=== PATIENT | female | born 1930 | race Hispanic/Latino ===

== ENCOUNTER 2019-02-22 18:59 | Emergency (ER) | payer OTHER ==
[~2019-02-22] VITALS: Ht 152.4 cm; Wt 49.4 kg
--- OUTSIDE RECORDS SUMMARY | 2019-02-22 19:02 | XMS REPORT ---
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
--- OUTSIDE RECORDS SUMMARY | 2019-02-22 19:02 | XMS REPORT ---
Author Author Samuel Cnaela [facility] eClinicalWorks Address Unknown Phone Unavailable Care Team Providers Care Hoop Cutter Name Role Phone Samuel Canela CP Unavailable Allergies, Adverse Reactions, Alerts Substance Reaction Event Type Sulfa Feels funny Non Drug Allergy Problems Problem Type Condition Code Onset Dates Condition Status Assessment Rheumatoid arthritis, involving unspecified site, unspecified rheumatoid factor presence M06.9 Active Problem Age-related osteoporosis without current pathological fracture M81.0 Active Assessment Age-related osteoporosis without current pathological fracture M81.0 Active Assessment Hip pain, left M25.552 Active Problem Inflammatory arthritis M19.90 Active Problem Vitamin D deficiency E55.9 Active Problem Shoulder pain, right M25.511 Active Problem Rheumatoid arthritis, involving unspecified site, unspecified rheumatoid factor presence M06.9 Active Problem [place] node M15.1 Active Problem Long-term use of high-risk medication Z79.899 Active Problem Polymyalgia rheumatica M35.3 Active Medications Medication Code System Code Instructions Start Date End Date Status Dosage Vitamin D (Ergocalciferol) [facility] 74799437520 84695 UNIT Orally once a week Active 1 capsule Pravastatin ND 0 20MG once a day Active 1 tablet Prolia [facility] 00787277631 60 MG/ML Subcutaneous January 21, 2018 Active as directed Levothyroxine Sodium ND 86637534817 25 MCG Orally Once a day Active 1 tablet Atenolol ND 07428015039 25 MG Orally Once a day Active 1 tablet Lisinopril ND 27319835677 40MG once a day Active 1 tablet Tramadol HCl ND 85680896502 50 MG Orally Three times a day Active 1 tablet PredniSONE ND 40838380574 2.5 MG Orally Once a day Jul 20, 2018 Active 1-2 tablet Boniva [facility] 94241838836 3 MG/3ML Intravenous 3 months January 21, 2018 Inactive 3 ml Vital Signs Date/Time: January 21, 2018 BMI 17.28 Index Weight 82.7 lbs Height 58 in Temperature 97.6 F Cardiac Monitoring Heart Rate 78 /min Blood Pressure Diastolic 70 mm Hg Blood Pressure Systolic 128 mm Hg Results No Known Results Summary Purpose eClinicalWorks Submission
--- OUTSIDE RECORDS SUMMARY | 2019-02-22 19:02 | XMS REPORT ---
Author Author Joel Miranda Organization eClinicalWorks Address Unknown Phone Unavailable Care Team Providers Care Textile Engineer Name Role Phone Joel Miranda CP Unavailable [...] Medications Results No Known Results Summary Purpose [employer] Submission
--- OUTSIDE RECORDS SUMMARY | 2019-02-22 19:02 | XMS REPORT ---
Author Author Joel Miranda Organization eClinicalWorks Address Unknown Phone Unavailable Care Team Providers Care Ict Account Manager Name Role Phone Joel Miranda CP Unavailable [...]
--- OUTSIDE RECORDS SUMMARY | 2019-02-22 19:02 | XMS REPORT ---
Author Author Joel Miranda Organization eClinicalWorks Address Unknown Phone Unavailable Care Team Providers Care Electrician Radio Name Role Phone Joel Miranda CP Unavailable [...] Medications Results No Known Results Summary Purpose [employer] Submission
--- OUTSIDE RECORDS SUMMARY | 2019-02-22 19:02 | XMS REPORT ---
Author Author Samuel Canela Organization eClinicalWorks Address Unknown Phone Unavailable Care Team Providers Care Home School Teacher Name Role Phone Samuel Canela CP Unavailable Allergies, Adverse Reactions, Alerts Substance Reaction Event Type Sulfa Feels funny Non Drug Allergy Problems Problem Type Condition Code Onset Dates Condition Status Assessment Age-related osteoporosis without current pathological fracture M81.0 Active Problem Age-related osteoporosis without current pathological fracture M81.0 Active Assessment Polymyalgia rheumatica M35.3 Active Problem Inflammatory arthritis M19.90 Active Problem Vitamin D deficiency E55.9 Active Problem Shoulder pain, right M25.511 Active Problem Rheumatoid arthritis, involving unspecified site, unspecified rheumatoid factor presence M06.9 Active Problem [place] node M15.1 Active Problem Long-term use of high-risk medication Z79.899 Active Problem Polymyalgia rheumatica M35.3 Active Medications Medication Code System Code Instructions Start Date End Date Status Dosage PredniSONE ND 21999815912 5 MG Orally Once a day Active 1-2 tablet Tramadol HCl ND 03554600964 50 MG Orally Three times a day Active 1 tablet Levothyroxine Sodium ND 60796591518 25 MCG Orally Once a day Active 1 tablet Losartan Potassium ND 07443884818 50 MG Orally twice a day Active 1 tablet Bisoprolol Fumarate ND 18940105456 5 MG Orally Once a day Active 1 tablet Prolia ND 47190664184 60 MG/ML Subcutaneous Jul 26, 2018 Active as directed Pravastatin NDC 0 20MG once a day Active 1 tablet Vital Signs Date/Time: December 06, 2018 BMI 17.25 Index Weight 85.4 lbs Height 59 in Temperature 97.9 F Cardiac Monitoring Heart Rate 60 /min Blood Pressure Diastolic 60 mm Hg Blood Pressure Systolic 130 mm Hg Results No Known Results Summary Purpose eClinicalWorks Submission
--- OUTSIDE RECORDS SUMMARY | 2019-02-22 19:02 | XMS REPORT ---
Author Author Joel Miranda Organization eClinicalWorks Address Unknown Phone Unavailable Care Team Providers Care Technical Support Associate Name Role Phone Joel Miranda CP Unavailable [...]
--- OUTSIDE RECORDS SUMMARY | 2019-02-22 19:02 | XMS REPORT ---
Author Author Samuel Canela [facility] eClinicalWorks Address Unknown Phone Unavailable Care Team Providers Care Sign Letterer Name Role Phone Samuel Canela CP Unavailable Allergies, Adverse Reactions, Alerts Substance Reaction Event Type Sulfa Feels funny Non Drug Allergy Problems Problem Type Condition Code Onset Dates Condition Status Assessment Long-term use of high-risk medication Z79.899 Active Problem Age-related osteoporosis without current pathological fracture M81.0 Active Assessment Age-related osteoporosis without current pathological fracture M81.0 Active Assessment Inflammatory arthritis M19.90 Active Assessment Vitamin D deficiency E55.9 Active Problem Inflammatory arthritis M19.90 Active Problem Vitamin D deficiency E55.9 Active Problem Shoulder pain, right M25.511 Active Problem Rheumatoid arthritis, involving unspecified site, unspecified rheumatoid factor presence M06.9 Active Problem [place] node M15.1 Active Problem Long-term use of high-risk medication Z79.899 Active Problem Polymyalgia rheumatica M35.3 Active Medications Medication Code System Code Instructions Start Date End Date Status Dosage Vitamin D (Ergocalciferol) [facility] 03532161897 69326 UNIT Orally once a week Active 1 capsule Pravastatin NDC 0 20MG once a day Active 1 tablet Tramadol HCl ND 70236856454 50 MG Orally Three times a day Active [address] [facility] 93377723932 3 MG/3ML Intravenous 3 months Active 3 ml PredniSONE ND 43720965240 2.5 MG Orally Once a day Active 1-2 tablet Atenolol ND 55510741578 25 MG Orally Once a day Active 1 tablet Lisinopril ND 11741092210 40MG once a day Active 1 tablet Levothyroxine Sodium ND 11227324573 25 MCG Orally Once a day Active 1 tablet Vital Signs Date/Time: Oct 12, 2017 BMI 17.45 Index Weight 83.5 lbs Height 58 in Temperature 97.4 F Cardiac Monitoring Heart Rate 82 /min Blood Pressure Diastolic 70 mm Hg Blood Pressure Systolic 122 mm Hg Results No Known Results Summary Purpose eClinicalWorks Submission
--- OUTSIDE RECORDS SUMMARY | 2019-02-22 19:02 | XMS REPORT ---
Author Author Samuel Canela [facility] eClinicalWorks Address Unknown Phone Unavailable Care Team Providers Care Greeter Name Role Phone Samuel Canela CP Unavailable Allergies No Known Allergies Problems [...] End Date Status Dosage Vitamin D (Ergocalciferol) [facility] 54524636036 15665 UNIT Orally once a week Active 1 capsule Results No Known Results Summary Purpose eClinicalWorks Submission
--- OUTSIDE RECORDS SUMMARY | 2019-02-22 19:02 | XMS REPORT ---
Author Author Samuel Canela [facility] eClinicalWorks Address Unknown Phone Unavailable Care Team Providers Care Grade Setter Name Role Phone Samuel Canela CP Unavailable Allergies, Adverse Reactions, Alerts Substance Reaction Event Type Sulfa Feels funny Non Drug Allergy Problems Problem Type Condition Code Onset Dates Condition Status Assessment Age-related osteoporosis without current pathological fracture M81.0 Active Problem Age-related osteoporosis without current pathological fracture M81.0 Active Assessment Inflammatory arthritis M19.90 Active Assessment Long-term use of high-risk medication Z79.899 Active Assessment Polymyalgia rheumatica M35.3 Active Problem [...] End Date Status Dosage Vitamin D (Ergocalciferol) [facility] 72168496625 87015 UNIT Orally once a week Active 1 capsule Levothyroxine Sodium ND 66584086199 25 MCG Orally Once a day Active 1 tablet Prolia [facility] 45795184589 60 MG/ML Subcutaneous Jul 26, 2018 Active as directed Lisinopril ND 96489960311 40MG once a day Active 1 tablet Tramadol HCl ND 95105137900 50 MG Orally Three times a day Active 1 tablet PredniSONE ND 87284085485 2.5 MG Orally Once a day Active 1-2 tablet PredniSONE ND 10706640644 5 MG Orally Once a day Jul 26, 2018 November 23, 2018 Active 5-10mg prn Atenolol ND 65421758483 25 MG Orally Once a day Active 1 tablet Prolia [facility] 28886122770 60 MG/ML Subcutaneous q 6 months March 18, 2018 Active as directed Pravastatin NDC 0 20MG once a day Active 1 tablet Vital Signs Date/Time: Jul 26, 2018 BMI 17.09 Index Weight 81.8 lbs Height 58 in Temperature 97.7 F Cardiac Monitoring Heart Rate 76 /min Blood Pressure Diastolic 80 mm Hg Blood Pressure Systolic 142 mm Hg Results Name Result Date Reference Range Unit Abnormality Flag SEDIMENTATION RATE ----SEDIMENTATION RATE 15 [id number] 0-20 MM/HOUR CBC W/AUTO DIFF ----PLATELET COUNT 224 [id number] 130-400 K/UL ----MCV 98.2 [id number] 80.0-100.0 fL ----HEMATOCRIT 38.2 [id number] 34.0-45.0 % ----BASOPHILS 0.3 [id number] 0.0-2.0 % ----MCHC 35.3 [id number] 32.0-35.5 G/DL ----EOSINOPHILS 0.9 [id number] 0.0-7.0 % ----MCH 34.7 [id number] 27.0-34.0 PG H ----MONOCYTES 8.3 [id number] 4.0-13.0 % ----WBC 6.4 [id number] 4.0-11.0 K/UL ----HEMOGLOBIN 13.5 [id number] 11.5-15.5 G/DL ----RBC 3.89 [id number] 3.80-5.10 M/UL ----LYMPHOCYTES 17.7 [id number] 19.0-48.0 % L ----RDW 12.5 [id number] 11.0-15.0 % ----NEUTROPHILS 72.8 [id number] 40.0-74.0 % VITAMIN D, 25 OH ----VITAMIN D, 25 OH 20 [id number] SEE BELOW NG/ML L COMPREHENSIVE METABOLIC PANEL ----SODIUM 142 20180726 133-146 MEQ/L ----CALC BUN/CREAT 19 20180726 6-28 RATIO ----CHLORIDE 105 20180726 95-107 MEQ/L ----POTASSIUM 4.4 20180726 3.5-5.4 MEQ/L ----CALCIUM 10.0 20180726 8.5-10.5 MG/DL ----PROTEIN, TOTAL 7.4 [id number] 6.1-8.3 G/DL ----CARBON DIOXIDE 25 [id number] 19-31 MEQ/L ----CALC A/G RATIO 1.7 [id number] 1.0-2.6 RATIO ---- eGFR AMER. 62 20180726 >60 ML/MIN/1.73 ----BILIRUBIN, TOTAL 0.6 20180726 <=1.2 MG/DL ---- eGFR NON- AMER. 54 20180726 >60 ML/MIN/1.73 L ----BUN 18 20180726 8-23 MG/DL ----ALBUMIN 4.7 20180726 3.5-5.2 G/DL ----CALC GLOBULIN 2.7 20180726 1.9-3.7 G/DL ----CREATININE 0.95 20180726 0.60-1.30 MG/DL ----ALT 18 20180726 5-40 U/L ----GLUCOSE 99 20180726 70-99 MG/DL ----ALKALINE PHOSPHATASE 107 20180726 40-142 U/L ----AST 27 20180726 9-40 U/L C-REACTIVE PROTEIN ----C-REACTIVE PROTEIN 0.2 20180726 <0.5 MG/DL Summary Purpose eClinicalWorks Submission
--- OUTSIDE RECORDS SUMMARY | 2019-02-22 19:02 | XMS REPORT ---
Author Author Joel Miranda Organization eClinicalWorks Address Unknown Phone Unavailable Care Team Providers Care Hospice Director Name Role Phone Joel Miranda CP Unavailable [...] Medications Results No Known Results Summary Purpose [employer] Submission
--- OUTSIDE RECORDS SUMMARY | 2019-02-22 19:02 | XMS REPORT ---
Author Author Joel Miranda Organization eClinicalWorks Address Unknown Phone Unavailable Care Team Providers Care Supervisor Modern Languages Name Role Phone Joel Miranda CP Unavailable [...] Instructions Start Date End Date Status Dosage Prolia [facility] 90439653195 60 MG/ML Subcutaneous q 6 months March 18, 2018 Active as directed Results No Known Results Summary Purpose eClinicalWorks Submission
--- OUTSIDE RECORDS SUMMARY | 2019-02-22 19:02 | XMS REPORT ---
Author Author Joel Miranda Organization eClinicalWorks Address Unknown Phone Unavailable Care Team Providers Care Horticultural Nursery Assistant Name Role Phone Joel Miranda CP Unavailable [...]
--- OUTSIDE RECORDS SUMMARY | 2019-02-22 19:02 | XMS REPORT ---
Author Author Samuel Canela [facility] [place] eClinicalWorks Address Unknown Phone Unavailable Care Team Providers Care Delphi Developer Name Role Phone Samuel Canela CP Unavailable [...] Instructions Start Date End Date Status Dosage Boniva [facility] 30507627289 3 MG/3ML Intravenous 3 months Active 3 ml Tramadol HCl [facility] 07864036324 50 Orally 3 times a day Active 1 tablet Atenolol ND 55383334859 25 MG Orally Once a day Active 1 tablet Vitamin D (Ergocalciferol) [facility] 74488598690 72237 UNIT Orally once a week Active 1 capsule PredniSONE ND 47139262292 2.5 MG Orally Once a day Active 1-2 tablet Folic Acid ND 12032860862 1 Active TAKE 1 TABLET BY MOUTH EVERY DAY Pravastatin NDC 0 20MG once a day Active 1 tablet Levothyroxine Sodium ND 04281836424 25 MCG Orally Once a day Active 1 tablet Lisinopril ND 49255334010 40MG once a day Active 1 tablet Vital Signs Date/Time: Jul 13, 2017 BMI 17.97 Index Weight 89 lbs Height 59 in Temperature 97.3 F Cardiac Monitoring Heart Rate 88 /min Blood Pressure Diastolic 83 mm Hg Blood Pressure Systolic 123 mm Hg Results No Known Results Summary Purpose eClinicalWorks Submission
--- OUTSIDE RECORDS SUMMARY | 2019-02-22 19:02 | XMS REPORT | Continuity of Care Document ---
Author Author Sherry sandra [facility] Address Unknown Phone Unavailable Problems Problem Status Onset Date Classification Date Reported Comments Source Age-related osteoporosis without current pathological fracture Active Diagnosis 12/09/2018 Miller Ruben Inflammatory arthritis Active Problem 12/09/2018 Miller Moiseer Vitamin D deficiency Active Problem 12/09/2018 Miller Moiseer Shoulder pain, right Active Problem 12/09/2018 Miller Miranda Rheumatoid arthritis, involving unspecified site, unspecified rheumatoid factor presence Active Problem 12/09/2018 Miller Miranda [place] node Active Problem 12/09/2018 Miller Miranda Long-term use of high-risk medication Active Problem 12/09/2018 Miller Miranda Polymyalgia rheumatica Active Diagnosis 12/09/2018 Miller Miranda Hip pain, left Active Diagnosis 01/23/2018 Miller Miranda Medications Medication Details Route Status Patient Instructions Ordering Provider Order Date Source Tramadol 1 tablet orally Active 50 mg orally three times a day Miranda 09/08/2018 Miller Miranda Vitamin D (Ergocalciferol) 1 capsule Orally Active 76337 UNIT Orally once a week [place] 07/27/2018 Miller Miranda PredniSONE 5-10mg prn Orally Active 5 MG Orally Once a day [place] 07/26/2018 Miller Miranda Prolia as directed Subcutaneous Active 60 MG/ML Subcutaneous [place] 07/26/2018 Miller Miranda PredniSONE 1-2 tablet Orally Active 2.5 MG Orally Once a day [place] 07/20/2018 Miller Miranda Prolia as directed Subcutaneous Active 60 MG/ML Subcutaneous q 6 months [place] 03/18/2018 Miller Miranda Prolia as directed Subcutaneous Active 60 MG/ML Subcutaneous [place] 01/21/2018 Miller Miranda Boniva 3 ml Intravenous Active 3 MG/3ML Intravenous 3 months Hilton 01/21/2018 Miller Miranda Vitamin D (Ergocalciferol) 1 capsule Orally Active 13159 UNIT Orally once a week [place] Miller Miranda Pravastatin 1 tablet NA Active 20MG once a day [facility] Miller Miranda Tramadol HCl 1 tablet Orally Active 50 MG Orally Three times a day [facility] Miller Miranda Boniva 3 ml Intravenous Active 3 MG/3ML Intravenous 3 months [place] Miller Miranda PredniSONE 1-2 tablet Orally Active 2.5 MG Orally Once a day [place] Miller Miranda Atenolol 1 tablet Orally Active 25 MG Orally Once a day [facility] Miller Miranda Lisinopril 1 tablet NA Active 40MG once a day [facility] Miller Miranda Levothyroxine Sodium 1 tablet Orally Active 25 MCG Orally Once a day [facility] Miller Miranda Tramadol HCl 1 tablet Orally Active 50 Orally 3 times a day [facility] Miller Miranda Folic Acid TAKE 1 TABLET BY MOUTH EVERY DAY NA Active 1 Miller Miranda PredniSONE 1-2 tablet Orally Active 5 MG Orally Once a day Miller Miranda Losartan Potassium 1 tablet Orally Active 50 MG Orally twice a day Miller Miranda Bisoprolol Fumarate 1 tablet Orally Active 5 MG Orally Once a day Miller Miranda Losartan Potassium 1 tablet Orally Active 50 MG Orally twice a day [place] Miller Miranda Allergies, Adverse Reactions, Alerts Substance Category Reaction Severity Reaction type Status Date Reported Comments Source Sulfa Adverse Reaction Feels funny Adverse Reaction Active 12/06/2018 Miller Miranda Immunizations Immunization Date Given Site Status Last Updated Comments Source Results Order Name Results Value Reference Range Date Interpretation Comments Source Vital Signs Vital Sign Value Date Comments Source Weight 85.4 12/06/2018 Miller Miranda Height 59 12/06/2018 Miller Miranda Temperature Oral (F) 97.9 F 12/06/2018 Miller Miranda Heart Rate 60 12/06/2018 Miller Miranda Diastolic (mm Hg) 60 12/06/2018 Miller Miranda Systolic (mm Hg) 130 12/06/2018 Miller Miranda Weight 82.1 08/17/2018 Miller Miranda Height 58 08/17/2018 Miller Miranda Temperature Oral (F) 98.7 F 08/17/2018 Miller Miranda Heart Rate 76 08/17/2018 Miller Miranda Diastolic (mm Hg) 90 08/17/2018 Miller Miranda Systolic (mm Hg) 138 08/17/2018 Miller Miranda Weight 81.5 08/02/2018 Miller Miranda Height 58 08/02/2018 Miller Miranda Temperature Oral (F) 97.6 F 08/02/2018 Miller Miranda Heart Rate 74 08/02/2018 Miller Miranda Diastolic (mm Hg) 80 08/02/2018 Miller Miranda Systolic (mm Hg) 138 08/02/2018 Miller Miranda Weight 81.8 07/26/2018 Mliler Miranda Height 58 07/26/2018 Mliler Miranda Temperature Oral (F) 97.7 F 07/26/2018 Miller Miranda Heart Rate 76 07/26/2018 Miller Miranda Diastolic (mm Hg) 80 07/26/2018 Miller Miranda Systolic (mm Hg) 142 07/26/2018 Miller Miranda Weight 82.7 01/21/2018 Miller Miranda Height 58 01/21/2018 Miller Miranda Temperature Oral (F) 97.6 F 01/21/2018 Miller Miranda Heart Rate 78 01/21/2018 Miller Miranda Diastolic (mm Hg) 70 01/21/2018 Miller Miranda Systolic (mm Hg) 128 01/21/2018 Miller Miranda Weight 83.5 10/12/2017 Miller Miranda Height 58 10/12/2017 Miller Miranda Temperature Oral (F) 97.4 F 10/12/2017 Miller Miranda Heart Rate 82 10/12/2017 Miller Miranda Diastolic (mm Hg) 70 10/12/2017 Miller Miranda Systolic (mm Hg) 122 10/12/2017 Miller Miranda Weight 89 07/13/2017 Miller Miranda Height 59 07/13/2017 Miller Miranda Temperature Oral (F) 97.3 F 07/13/2017 Miller Miranda Heart Rate 88 07/13/2017 Miller Miranda Diastolic (mm Hg) 83 07/13/2017 Miller Miranda Systolic (mm Hg) 123 07/13/2017 Miller Miranda Encounters Location Location Details Encounter Type Encounter Number Reason For Visit Attending Provider ADM Date DC Date Status Source Procedures Procedure Code Date Perfomer Comments Source
--- OUTSIDE RECORDS SUMMARY | 2019-02-22 19:02 | XMS REPORT ---
Author Author aSmuel Canela [facility] eClinicalWorks Address Unknown Phone Unavailable Care Team Providers Care Switch Inspector Name Role Phone Samuel Canela CP Unavailable [...] Start Date End Date Status Dosage PredniSONE [facility] 28536793660 2.5 MG Orally Once a day Active 1-2 tablet Atenolol ND 78274753462 25 MG Orally Once a day Active 1 tablet Pravastatin NDC 0 20MG once a day Active 1 tablet Vitamin D (Ergocalciferol) [facility] 37666229855 75219 UNIT Orally once a week Jul 27, 2018 Active 1 capsule PredniSONE ND 81866147308 5 MG Orally Once a day Jul 26, 2018 November 23, 2018 Active 5-10mg prn Vitamin D (Ergocalciferol) [facility] 88320446798 07079 UNIT Orally once a week Active 1 capsule Lisinopril ND 69588979393 40MG once a day Active 1 tablet Tramadol HCl ND 36225096092 50 MG Orally Three times a day Active 1 tablet Prolia ND 28356006366 60 MG/ML Subcutaneous q 6 months March 18, 2018 Active as directed Prolia ND 48561573687 60 MG/ML Subcutaneous Jul 26, 2018 Active as directed Levothyroxine Sodium ND 67294438904 25 MCG Orally Once a day Active 1 tablet Vital Signs Date/Time: Aug 02, 2018 BMI 17.03 Index Weight 81.5 lbs Height 58 in Temperature 97.6 F Cardiac Monitoring Heart Rate 74 /min Blood Pressure Diastolic 80 mm Hg Blood Pressure Systolic 138 mm Hg Results No Known Results Summary Purpose eClinicalWorks Submission
--- OUTSIDE RECORDS SUMMARY | 2019-02-22 19:02 | XMS REPORT ---
Author Author Samuel Canela Organization eClinicalWorks Address Unknown Phone Unavailable Care Team Providers Care Incident Response Coordinator Name Role Phone Samuel Canela CP Unavailable [...]
--- OUTSIDE RECORDS SUMMARY | 2019-02-22 19:03 | XMS REPORT ---
Author Author Joel Miranda Organization eClinicalWorks Address Unknown Phone Unavailable Care Team Providers Care Field Technician Name Role Phone Joel Miranda CP Unavailable [...] Instructions Start Date End Date Status Dosage Tramadol NDC 0 50 mg orally three times a day Sep 08, 2018 Nov 07, 2018 Active 1 tablet Results No Known Results Summary Purpose eClinicalWorks Submission
--- OUTSIDE RECORDS SUMMARY | 2019-02-22 19:03 | XMS REPORT ---
Author Author Joel Miranda Organization eClinicalWorks Address Unknown Phone Unavailable Care Team Providers Care Rigging Slinger Name Role Phone Joel Miranda CP Unavailable [...] Medications Results No Known Results Summary Purpose [employer] Submission
--- OUTSIDE RECORDS SUMMARY | 2019-02-22 19:03 | XMS REPORT ---
Author Author Joel Miranda Organization eClinicalWorks Address Unknown Phone Unavailable Care Team Providers Care Quantitative Manager Name Role Phone Joel Miranda CP [...]
--- OUTSIDE RECORDS SUMMARY | 2019-02-22 19:03 | XMS REPORT | Summary of Care ---
Author Author Miguelina Castellano M.A. Unknown Address [facility] Phone Unavailable Care Team Providers Care Frit Mixer And Burner Name Role Phone TYLOR CA Unavailable Unavailable KATE Joshi, ALAINA Unavailable Unavailable VERA N.P., HUSSEIN Unavailable Unavailable ERIKA LANGLEY GA, MEI HERRERA Unavailable Unavailable ERIKA LANGLEY, MEI RUIZ Unavailable Unavailable FANNIE LANGLEY, CHIKI Gomez Unavailable Unavailable LORY MAYAP, CELIA Unavailable Unavailable ERIKA Joshi, MEI Unavailable Unavailable RAJENDRA RAINER GA, SARA LAIRD Unavailable Unavailable GEOVANNA LANGLEY, KORY Maloney Unavailable Unavailable SHELLI BADILLO MD, CORAZON Melgoza Unavailable Unavailable Unavailable Unavailable Functional Status Name Dates Details Functional status health issues are not documented Status: Name Dates Details Cognitive status health issues are not documented Status: Problems Name Dates Details Insufficiency, arterial, 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, 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) Status: Active Platelets decreased (287.5, D69.6) Status: Active Elevated ferritin level (790.6, R79.89) Status: Active Bursitis of right shoulder (726.10, M75.51) Status: Active Rotator cuff tear arthropathy, 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, 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) Status: Active Pain of right shoulder region (719.41, M25.511) Status: Active Decreased range of motion of right shoulder (719.51, M25.611) Status: Active Bilateral hearing loss (389.9, H91.93) Status: Active Advance directive discussed with patient (V65.49, Z71.89) Status: Active Allergic rhinitis (477.9, J30.9) Status: Active Anemia (285.9, D64.9) Status: Active 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, 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 Need for pneumococcal vaccination (V03.82, Z23) Status: Active Clavicle fracture (810.00, S42.009A) Status: Active Closed nondisplaced fracture of shaft of left clavicle, initial encounter (810.02, S42.025A) Status: Active Shoulder pain (719.41, M25.519) Status: Active Anxiety (300.00, F41.9) Status: Active Closed fracture of distal end of right radius, unspecified fracture morphology, initial encounter (813.42, S52.501A) Status: Active Arthritis of right hip (716.95, M16.11) Status: Active Right hip pain (719.45, M25.551) Status: Active Seasonal allergic rhinitis due to pollen (477.0, J30.1) Status: Active Restless leg syndrome (333.94, G25.81) Status: Active Abnormal renal function (593.9, N28.9) Status: Active Encounter for mini-mental status examination Status: Active Flu vaccine need (V04.81, Z23) Status: Active Hearing impaired (389.9, H91.90) Status: Active Need for influenza vaccination (V04.81, Z23) Status: Active Encounter for Medicare annual wellness exam (V70.0, Z00.00) Status: Active Osteoarthritis, localized, shoulder, 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, M19.011) Status: Active Osteoporosis (733.00, M81.0) Status: Active Left shoulder pain (719.41, M25.512) Status: Active At moderate risk for fall (V15.88, Z91.81) Status: Active Constipation, chronic (564.00, K59.09) Status: Active Essential (primary) hypertension (401.9, I10) Status: Active Hyperlipidemia (272.4, E78.5) Status: Active Hypothyroidism in adult (244.9, E03.9) Status: Active Left hip pain (719.45, M25.552) Status: Active Limb pain (729.5, M79.609) Status: Active Osteoarthritis of left hip, unspecified osteoarthritis type (715.95, M16.12) Status: Active Rheumatoid arthritis (714.0, M06.9) Status: Active Polyarthralgia (719.49, M25.50) Status: Active Nocturia (788.43, R35.1) Status: Active Frequent UTI (599.0, N39.0) Status: Active Urinary frequency (788.41, R35.0) Status: Active Acute urinary tract infection (599.0, N39.0) Status: Active Medications Name Dates Details Pravastatin Sodium 20 MG Oral Tablet TAKE 1 TABLET DAILY DIRECTED. Quantity: 90 VERA N.P., HUSSEIN * Start : 02-Nov-2014 Active traMADol HCl - 50 MG Oral Tablet bid prn * Quantity: 20 Refills: 0 ALAINA LOVE M.D. Active Levothyroxine Sodium 50 MCG Oral Tablet TAKE 1 TABLET DAILY * Quantity: 90 Refills: 1 VERA N.P., HUSSEIN * Start : 15-Oct-2016 Active Vitamin D 46227 UNIT CAPS TAKE 1 CAPSULE WEEKLY. * Refills: 0 Active Ibandronate Sodium SOLN INJECTION EVERY 3 MONTHS * Refills: 0 Active 3 ML Syringe Bisoprolol Fumarate 5 MG Oral Tablet TAKE 1 TABLET ONCE DAILY. * Quantity: 90 Refills: 1 VERA N.P., HUSSEIN * Start : 23-Dec-2017 Active Walker Wheels Use as needed to assist with ambulating. * Quantity: 1 Refills: 0 PATTERSON P.A., TYLOR * Start : 20-Jan-2018 Active Diclofenac Sodium 1 % Transdermal Gel Apply sparingly to affected area twice daily as needed for pain. * Quantity: 1 Refills: 1 VERA N.P., HUSSEIN * Start : 03-Feb-2018 Active 100 GM Tube Gabapentin 100 MG Oral Capsule TAKE 1 CAPSULE BEDTIME PRN * Quantity: 30 Refills: 5 VERA N.P., HUSSEIN * Start : 08-Jul-2018 Active Azelastine HCl - 0.1 % Nasal Solution USE 1 SPRAY IN EACH NOSTRIL TWICE DAILY. * Quantity: 1 Refills: 5 VERA N.P., HUSSEIN * Start : 08-Jul-2018 Active 30 ML Bottle Losartan Potassium 50 MG Oral Tablet TAKE 1 TABLET TWICE DAILY. * Quantity: 180 Refills: 1 VERA N.P., HUSSEIN * Start : 13-Aug-2018 Active Cefuroxime Axetil 250 MG Oral Tablet TAKE 1 TABLET TWICE DAILY * Quantity: 14 Refills: 0 VERA N.P., HUSSEIN * Start : 14-Feb-2019 Active Allergies and Adverse Reactions Name Dates Details Sulfa Drugs (Allergy) Status: Active Past Medical History Name Dates Details History of abdominal pain (V13.89, Z87.898) Status: Resolved History of Abscess of foot (682.7, L02.619) Status: Resolved History of acute bronchitis (V12.69, Z87.09) Status: Resolved History of Acute diarrhea (787.91, R19.7) Status: Resolved History of allergic rhinitis (V12.69, Z87.09) Status: Resolved History of constipation (V12.79, Z87.19) Status: Resolved History of Diverticulosis (562.10, K57.90) Status: Resolved History of pneumococcal vaccination (V49.89, Z92.29) Status: Resolved Procedures Procedure Dates Details History of Hernia Repair Completed History of Hemorrhoidectomy Completed History of Hysterectomy Completed History of Cataract Surgery Completed Immunization Name Dates Details Tetanus on: 04-Mar-2010 Influenza on: 02-Jul-2012 Fluzone INJ on: 05-Jun-2013 Fluzone INJ Lot #: [id number] on: 30-May-2014 Prevnar 13 Intramuscular Suspension Lot #: [id number] on: 09-Mar-2015 Fluzone Preservative Free 0.5 ML ENRRIQUE Lot #: [id number] on: 26-Jun-2015 Fluzone Quadrivalent 0.5 ML Intramuscular Suspension Prefilled Syringe Lot #: [id number] on: 27-Jun-2016 Fluzone High-Dose 0.5 ML Intramuscular Suspension Prefilled Syringe Lot #: [id number] on: 24-Jun-2017 Pneumococcal polysaccharide vaccine, 23 valent Lot #: [id number] on: 24-Jun-2017 Fluzone High-Dose 0.5 ML Intramuscular Suspension Prefilled Syringe Lot #: [id number] on: 21-Jul-2018 Family History Name Dates Details No pertinent family history (V49.89, Z78.9) Status: Active Name Dates Details Family history of lung cancer (V16.1, Z80.1) Status: Active Social History Name Dates Details - Status: Name Dates Details Never smoker Vital Signs Date Test Result Details :44 Physical Findings 3 Status: Comments: PHQ-9 Adult Depression Screening :07 BP Systolic 176 mm[Hg] Status: Comments: Location: LUE; Position: Sitting BP Diastolic 63 mm[Hg] Status: Comments: Location: LUE; Position: Sitting Heart Rate 66 /min Status: :05 BP Systolic 177 mm[Hg] Status: Comments: Location: LUE; Position: Sitting BP Diastolic 66 mm[Hg] Status: Comments: Location: LUE; Position: Sitting Heart Rate 66 /min Status: Height 57 in Status: Weight 85 lb Status: Body Mass Index Calculated 18.39 kg/m2 Status: Body Surface Area Calculated 1.25 m2 Status: Temperature 98.5 f Status: Comments: Method: Temporal Respiration Rate 16 /min Status: :00 Physical Findings 0 Status: Comments: Alcohol Screen - How many times in the past yr have you had 5 (for M) or 4 (for F) or 4 (for all > 65yrs) or more drinks in a day? Results Date Description Value Details :45 [U] XRAY HIP UNILATERAL MIN 2 VWS LEFT 78221 XR HIP UNILATERAL MIN 2 VWS LEFT Images acquired, not reported on this accession number. :14 [O] Urine Dipstick (In Office) Glucose normal (Normal) LEUKOCYTES trace NITRITE neg (Normal) UROBILINOGEN neg (Normal) PROTEIN trace pH 5 URINE BLOOD trace SPECIFIC GRAVITY 1.010 KETONES neg (Normal) BILIRUBIN neg (Normal) COLOR URINE yellow (Normal) APPEARANCE clear (Normal) :00 [[facility]] CULTURE, URINE, ROUTINE CULTURE (Abnormal) Comments: CULTURE, URINE, ROUTINE MICRO NUMBER: [id number] TEST STATUS: FINAL SPECIMEN SOURCE: NOT GIVEN SPECIMEN QUALITY: ADEQUATE RESULT: 10,000-50,000 CFU/mL of Escherichia coli 10,000-50,000 CFU/mL of Coagulase negative staphylococcus, not S. saprophyticus Please call the laboratory within three (3) days if further identification or susceptibilities are required. E.coli INT SHAHLA AMOX/CLAVULANATE S <=2 AMPICILLIN S 8 AMP/SULBACTAM S <=2 CEFAZOLIN NR <=4 2 CEFEPIME S <=1 CEFTRIAXONE S <=1 CIPROFLOXACIN R >=4 GENTAMICIN S <=1 IMIPENEM S <=0.25 LEVOFLOXACIN R >=8 NITROFURANTOIN S <=16 PIP/TAZOBACTAM S <=4 TOBRAMYCIN S <=1 TRIMETHOPRIM/SULFA S <=20S=Susceptible I=Intermediate R=Resistant *=Not TestedNR=Not Reported NN=See Therapy CommentsTHERAPY COMMENTS Note 1: For infections other than uncomplicated UTI caused by E. coli, K. pneumoniae or P. mirabilis: Cefazolin is resistant if SHAHLA > or=8 mcg/mL. (Distinguishing susceptible versus intermediate for isolates with SHAHLA < or=4 mcg/mL requires additional testing.) Note 2: For uncomplicated UTI caused by E. coli, K. pneumoniae or P. mirabilis: Cefazolin is susceptible if SHAHLA <32 mcg/mL and predicts susceptible to the oral agents cefaclor, cefdinir, cefpodoxime, cefprozil, cefuroxime, cephalexin and loracarbef. Plan of Care Name Dates Details Planned Observations Planned Goals not documented Interventions Provided Labs/Procedures/Imaging* [O] Urine Dipstick (In Office); Done: 14 Feb 2019 * Tobacco Use Screening; Done: 14 Feb 2019 Instructions* Patient Specific Education Given; Done: 14 Feb 2019 Follow-ups/Referrals* Urogynecologist; To Be Done: 14 Feb 2019 Plan* Send urine culture. * Refer to urogynecology for urinary frequency and frequent UTI. * Drink plenty of water. * Follow up in April for 6 months follow up for med refills. * Follow up if symptoms persist or worsen. Instructions Name Dates Details Instructions not documented Encounters Appointment; SARA DREW P.A. Encounter Diagnosis: Problem not documented On: 26-Mar-2017 15:00 Appointment; TYLOR PATTERSON P.A. Encounter Diagnosis: Problem not documented On: 24-Jun-2017 14:30 Appointment; CHIKI GRECO M.D. Encounter Diagnosis: Problem not documented On: 10-Aug-2017 10:30 Appointment; CORAZON MARQUES M.D. Encounter Diagnosis: Problem not documented On: 22-Sep-2017 11:15 Appointment; CORAZON MARQUES M.D. Encounter Diagnosis: Problem not documented On: 13-Oct-2017 11:15 Appointment; CORAZON MARQUES M.D. Encounter Diagnosis: Problem not documented On: 10-Nov-2017 11:45 Appointment; CORAZON MARQUES M.D. Encounter Diagnosis: Problem not documented On: 17-Nov-2017 10:45 Appointment; TYLOR PATTERSON P.A. Encounter Diagnosis: Problem not documented On: 04-Dec-2017 14:30 Appointment; CORAZON MARQUES M.D. Encounter Diagnosis: Problem not documented On: 15-Dec-2017 10:15 Appointment; ALAINA LOVE M.D. Encounter Diagnosis: Problem not documented On: 23-Dec-2017 15:30 Appointment; CORAZON MARQUES M.D. Encounter Diagnosis: Problem not documented On: 12-Jan-2018 12:15 Appointment; HUSSEIN VERA HEAD TEACHER Encounter Diagnosis: Problem not documented On: 03-Feb-2018 16:15 Appointment; CORAZON MARQUES M.D. Encounter Diagnosis: Problem not documented On: 09-Feb-2018 12:30 Appointment; CORAZON MARQUES M.D. Encounter Diagnosis: Problem not documented On: 30-Mar-2018 11:45 Appointment; HUSSEIN VERA, HEAD TEACHER Encounter Diagnosis: Problem not documented On: 15-Apr-2018 18:30 Appointment; HUSSEIN VERA HEAD TEACHER Encounter Diagnosis: Problem not documented On: 22-Apr-2018 18:30 Appointment; HUSSEIN VERA, HEAD TEACHER Encounter Diagnosis: Problem not documented On: 08-Jul-2018 14:30 Appointment; CELIA HENLEY NP Encounter Diagnosis: Problem not documented On: 21-Jul-2018 8:30 Appointment; HUSSEIN VERA HEAD TEACHER Encounter Diagnosis: Problem not documented On: 13-Aug-2018 16:15 Appointment; HUSSEIN VERA, HEAD TEACHER Encounter Diagnosis: Problem not documented On: 22-Oct-2018 18:30 Appointment; HUSSEIN VERA HEAD TEACHER Encounter Diagnosis: Problem not documented On: 08-Dec-2018 19:00 Appointment; CORAZON MARQUES M.D. Encounter Diagnosis: Problem not documented On: 14-Dec-2018 12:30 Appointment; CORAZON MARQUES M.D. Encounter Diagnosis: Problem not documented On: 25-Jan-2019 12:15 Appointment; HUSSEIN VERA HEAD TEACHER Encounter Diagnosis: Problem not documented On: 14-Feb-2019 12:00
--- OUTSIDE RECORDS SUMMARY | 2019-02-22 19:03 | XMS REPORT ---
Author Author Joel Miranda Organization [employer] Address Unknown Phone Unavailable Care Team Providers Care Teacher Tutor Name Role Phone Joel Miranda CP Unavailable [...] Medications Results No Known Results Summary Purpose [employer] Submission
--- OUTSIDE RECORDS SUMMARY | 2019-02-22 19:03 | XMS REPORT ---
Author Author Samuel Canela [facility] [employer] Address Unknown Phone Unavailable Care Team Providers Care Hha Name Role Phone Samuel Canela CP Unavailable Allergies, Adverse Reactions, Alerts Substance Reaction Event Type Sulfa Feels funny Non Drug Allergy Problems Problem Type Condition Code Onset Dates Condition Status Assessment Rheumatoid arthritis, involving unspecified site, unspecified rheumatoid factor presence M06.9 Active Problem Age-related osteoporosis without current pathological fracture M81.0 Active Assessment Shoulder pain, right M25.511 Active Problem Inflammatory arthritis M19.90 Active Problem [...] Date Status Dosage Vitamin D (Ergocalciferol) [facility] 42719039295 12816 UNIT Orally once a week Active 1 capsule Levothyroxine Sodium ND 99254845025 25 MCG Orally Once a day Active 1 tablet Vitamin D (Ergocalciferol) [facility] 79584246748 91212 UNIT Orally once a week Jul 27, 2018 Active 1 capsule Prolia [facility] 01380672999 60 MG/ML Subcutaneous q 6 months March 18, 2018 Active as directed PredniSONE ND 61486101608 2.5 MG Orally Once a day Active 1-2 tablet Prolia ND 84188618533 60 MG/ML Subcutaneous Jul 26, 2018 Active as directed Tramadol HCl ND 03595093755 50 MG Orally Three times a day Active 1 tablet Pravastatin NDC 0 20MG once a day Active 1 tablet PredniSONE ND 99089807779 5 MG Orally Once a day Jul 26, 2018 November 23, 2018 Active 5-10mg [place] [address]-43 50 MG Orally twice a day Active 1 tablet Atenolol [facility] 27964213245 25 MG Orally Once a day Active 1 tablet Vital Signs Date/Time: Aug 17, 2018 BMI 17.16 Index Weight 82.1 lbs Height 58 in Temperature 98.7 F Cardiac Monitoring Heart Rate 76 /min Blood Pressure Diastolic 90 mm Hg Blood Pressure Systolic 138 mm Hg Results No Known Results Summary Purpose [employer] Submission
--- OUTSIDE RECORDS SUMMARY | 2019-02-22 19:03 | XMS REPORT ---
Author Author Samuel Canela Organization [employer] Address Unknown Phone Unavailable Care Team Providers Care Emergency Vehicle Technician Name Role Phone Samuel Canela CP Unavailable [...] End Date Status Dosage Vitamin D (Ergocalciferol) [facility] 48905542960 80498 UNIT Orally once a week Jul 27, 2018 Active 1 capsule Results No Known Results Summary Purpose [employer] Submission
--- NOTE | 2019-02-22 20:25 | Diagnostic Imaging Report ---
History: Fall, head abrasion and neck pain Comparison studies:None Technique: Axial images were obtained from the brain and cervical spine. Coronal and sagittal images reconstructed from the axial data. Intravenous contrast: None Dose modulation, iterative reconstruction, and/or weight based adjustment of the mA/kV was utilized to reduce the radiation dose to as low as reasonably achievable. Findings: Head CT: Scalp/skull: Small right supraorbital scalp hematoma. No fractures, blastic or lytic lesions. Brain sulci: Mildly prominent. Ventricles: Normal in size and configuration. No hydrocephalus. Extra-axial spaces: No masses. No fluid collections. Parenchyma: Few hypodensities of the periventricular and deep white matter, nonspecific and most commonly seen with mild chronic microvascular ischemic changes. No masses, hemorrhage, acute or chronic cortical vascular insults. Sellar/suprasellar region: No abnormalities. Craniocervical junction: Patent foramen magnum. No Chiari one malformation. Atherosclerotic calcifications of the carotid siphons and vertebral arteries Cervical spine CT: Fractures: None. Soft tissues: No gross abnormalities. Atlantoaxial articulation: Degenerative changes without acute abnormality. Alignment: Straightening of the cervical lordosis. Grade 1 anterior listhesis of C4 over 65 and C5 over C6. No scoliosis. Cervicomedullary junction: No abnormalities. Patent foramen magnum. Vertebrae: No infection or neoplasm. Degenerative changes: Uncinate process and facet hypertrophy results in multilevel foraminal narrowing, mild left at C3-4, mild right at C4-5, mild bilateral at C5-6. Incidental findings: Atherosclerotic calcifications of the carotid bulbs. Mild scarring at the right lung apex. Impression: Head CT: 1. No acute intracranial abnormality. 2. Right supraorbital small scalp hematoma. Cervical spine CT: 1. No acute abnormalities. 2. Cannot exclude ligament, spinal cord and or vascular abnormalities on the basis of this examination. Signed by: DR Yfn Canales M.D. on 02/22/2019 8:22 PM
--- NOTE | 2019-02-22 20:31 | Diagnostic Imaging Report ---
RIGHT SHOULDER - 2 Images RIGHT FOREARM- 2 Images HISTORY: Fell down, pain COMPARISON: None available. FINDINGS: Bones: Diffusely decreased mineralization of the osseous structures limits bone detail. Transverse linear density at the distal radial metaphysis and age-indeterminate cortical buckle. Superior subluxation of the humeral head with acetabularization of the acromion. Joints: Severe degenerative changes of the acromioclavicular and glenohumeral joints. Soft tissues: Diffuse scattered atherosclerotic vascular calcifications. IMPRESSION: 1. Age-indeterminate subtle impaction fracture deformity of the distal radius. Correlate for acute focal point tenderness. When feasible, dedicated routine 3 view wrist radiograph series is recommended. 2. Findings compatible with chronic full-thickness rotator cuff tear. 3. Severe osteoarthrosis of the acromioclavicular and glenohumeral joints. 4. Diffuse osseous demineralization. Signed by: Dr. Marcos Stevens D.O., M.M.M. on 02/22/2019 8:28 PM
[2019-02-22 21:33] VITALS: BP 135/69
== END 2019-02-22 21:48 | disposition home or self-care (01) ==
LOC: ER 18:59
DX: S40.011A Contusion of right shoulder, initial encounter (principal); S00.83XA Contusion of other part of head, initial encounter; W01.0XXA Fall on same level from slipping, tripping and stumbling without subsequent striking against object, initial encounter; S00.81XA Abrasion of other part of head, initial encounter; Y93.01 Activity, walking, marching and hiking; Y92.019 Unspecified place in single-family (private) house as the place of occurrence of the external cause; I10 Essential (primary) hypertension; E03.9 Hypothyroidism, unspecified; Z88.2 Allergy status to sulfonamides; E78.5 Hyperlipidemia, unspecified; Z87.440 Personal history of urinary (tract) infections; Z82.49 Family history of ischemic heart disease and other diseases of the circulatory system; Z83.3 Family history of diabetes mellitus
CPT/HCPCS: 70450; 72125; 99283